=== PATIENT | male | born 1980 | race Caucasian/White ===

== ENCOUNTER 2016-12-12 22:38 | Emergency (ER) | payer BC, OTHER ==
[~2016-12-12] VITALS: Ht 185.4 cm; Wt 83.9 kg
--- NOTE | 2016-12-12 22:52 | ED.ADGEN ---
Past History Past Medical History: No Pertinent History Past Surgical History: Other Alcohol Use: Occasionally Drug Use: None Adult General Chief Complaint Chief Complaint " My rt. hand jean claude got, jammed.. when a another player ran into me" HPI HPI Patient is a 36 year old male who presents with above hx and complaints of right hand injury while playing soccer.. Patient is right-hand dominant. Patient has obvious swelling of his right hand and index finger area. Distal sensation intact. Does have range of motion but is somewhat guarded because of pain. Patient denies any other health history issues. Patient denies any other injuries. Patient normally healthy. Patient is right-hand dominant. Review of Systems Review of Systems Constitutional: Denies fever or chills [] Eyes: Denies change in visual acuity, redness, or eye pain [] HENT: Denies nasal congestion or sore throat [] Respiratory: Denies cough or shortness of breath [] Cardiovascular: No additional information not addressed in HPI [] GI: Denies abdominal pain, nausea, vomiting, bloody stools or diarrhea [] : Denies dysuria or hematuria [] Musculoskeletal: Denies back pain or joint pain []complaints of right hand pain Integument: Denies rash or skin lesions [] Neurologic: Denies headache, focal weakness or sensory changes [] Endocrine: Denies polyuria or polydipsia [] Family History Family History Noncontributory Current Medications Current Medications Current Medications Medications (Trade) Dose Ordered Sig/Carlos Start Time Stop Time Status Last Admin Dose Admin Hydrocodone Bitartrate/ Ibuprofen (Vicoprofen 7.5-200) 1 tab 1X ONCE 12/12/16 23:00 12/12/16 23:01 DC 12/12/16 23:00 1 TAB See nursing for home meds Allergies Allergies Allergies Coded Allergies Type Severity Reaction Last Updated Verified No Known Drug Allergies 08/16/14 No Physical Exam Physical Exam Constitutional: Well developed, well nourished, no acute distress, non-toxic appearance. [] HENT: Normocephalic, atraumatic, bilateral external ears normal, oropharynx moist, no oral exudates, nose normal. [] Eyes: PERRLA, EOMI, conjunctiva normal, no discharge. [] Neck: Normal range of motion, no tenderness, supple, no stridor. [] Cardiovascular:Heart rate regular rhythm, no murmur [] Lungs & Thorax: Bilateral breath sounds clear to auscultation [] Abdomen: Bowel sounds normal, soft, no tenderness, no masses, no pulsatile masses. [] Skin: Warm, dry, no erythema, no rash. [] Back: No tenderness, no CVA tenderness. [] Extremities: No tenderness, no cyanosis, no clubbing, ROM intact, no edema. [] Except findings of right hand-edema and pain. Distal neurovascular intact. 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 [] Psychologic: Affect normal, judgement normal, mood normal. [] EKG EKG [] Radiology/Procedures Radiology/Procedures My interpretation x-ray shows second and third metacarpal fractures[] Course & Med Decision Making Course & Med Decision Making Pertinent Labs and Imaging studies reviewed. (See chart for details) This neurovascular intact after application of splint. Patient keep hand elevated. Ice packs when necessary. Tylenol ibuprofen pain. Follow-up orthopedics.. Return if any concerns. [] Final Impression Final Impression 1. Rt hand contusion[] 2. Fractures of the second and third metacarpals right hand Problems: Dragon Disclaimer Dragon Disclaimer This electronic medical record was generated, in whole or in part, using a voice recognition dictation system. MIKA SHEPHERD MD Dec 12, 2016 22:52
[2016-12-12] MEDS ORDERED: HYDROcodon/IBUPROFEN 7.5/200MG 1 TAB TABLET PO ONE (23:00)
[2016-12-12] MEDS ORDERED: HYDR-79 PO (23:11)
[2016-12-13 00:20] VITALS: BP 122/82
--- NOTE | 2016-12-13 08:26 | RAD ---
Exam: Right hand radiograph 12/12/2016 Indication: Right hand pain and swelling. Comparison: None available Technique: 3 views of the right hand are provided. Findings: Obliquely oriented fractures identified involving the second and fourth metacarpals with mild displacement. There is no significant angulation. No extension to the carpometacarpal or metacarpophalangeal joints. There is associated soft tissue swelling. Bone mineralization is within normal limits. Impression: Mildly displaced obliquely oriented fractures involving the second and fourth metacarpals without intra-articular extension.
== END 2016-12-13 00:31 | disposition home or self-care (01) ==
LOC: ER 22:38
DX: S62.201A Unspecified fracture of first metacarpal bone, right hand, initial encounter for closed fracture (principal); S62.304A Unspecified fracture of fourth metacarpal bone, right hand, initial encounter for closed fracture; W51.XXXA Accidental striking against or bumped into by another person, initial encounter; Y93.66 Activity, soccer; Y99.8 Other external cause status; Y92.89 Other specified places as the place of occurrence of the external cause
CPT/HCPCS: 29125; 73130; 99284-25